=== PATIENT | female | born 1995 | race Two or more races ===

== ENCOUNTER 2019-03-24 09:29 | Emergency (ER) | payer OTHER ==
[~2019-03-24] VITALS: Ht 170.2 cm; Wt 59.0 kg
[~2019-03-24 09:29] MED LIST: CEFTIN250 MG PO; RELAGESIC TABL1 EACH PO
[2019-03-24] MEDS ORDERED: PREDNISONE20 MG PO (16:08)
== END 2019-03-24 16:22 | disposition home or self-care (01) ==
LOC: ER 09:29
DX: R10.2 Pelvic and perineal pain (principal)